=== PATIENT | female | born 1985 | race Caucasian/White ===

== ENCOUNTER 2021-01-24 20:51 | Observation (INO) | payer OTHER ==
[~2021-01-24] VITALS: Ht 154.9 cm; Wt 59.0 kg
[~2021-01-24 20:51] MED LIST: APAP500 PO; IBUPROFEN 600600 M1 PO; LANOLIN56 GM; LOPERAMIDE 2 MG2 M1 PO; NORCO 5-325 TA1 EACH PO; PENICILLIN VK500 M1 PO; TUCKS1 EAC1 TOP; ZOFRAN ODT8 MG PO
[2021-01-24 20:56] VITALS: BP 165/115
[2021-01-24 21:29] LABS: HEMATOCRIT 41.1 % (37.0-47.0); HEMOGLOBIN 13.9 gm/dL (12.0-15.0); MCH 29.8 pg (26.0-34.0); MCHC 33.8 g/dL (28.0-37.0); MCV 88.1 fL (80.0-100.0); MPV 7.8 fl. (7.2-11.1); NUCLEATED RBCS 0 /100WBC; PLATELET COUNT* 225 thou/uL (150-400); RBC 4.66 mil/uL (4.20-5.00); RDW-CV 12.9 % (10.5-14.5); WBC 19.5 thou/uL (4.0-11.0)
[2021-01-24 21:33] LABS: CALCIUM 9.2 mg/dL (8.5-10.1); CREATININE 0.9 mg/dL (0.6-1.3); POTASSIUM 3.5 mmol/L (3.5-5.1)
[2021-01-24 21:38] LABS: ALBUMIN 3.9 g/dL (3.4-5.0); TOTAL BILIRUBIN 1.1 mg/dL (<0.1-1.0)
[2021-01-24 21:58] LABS: ABSOLUTE LYMPHOCYTES 0.4 thou/uL (0.8-5.3); ABSOLUTE MONOCYTES 0.4 thou/uL (0.0-1.2); ABSOLUTE NEUTROPHILS 18.7 thou/uL (1.6-8.1)
[2021-01-24 21:59] LABS: PLATELET ESTIMATE ADEQUATE
[2021-01-25 00:17] LABS: URINE BILIRUBIN NEGATIVE (Negative); URINE BLOOD TRACE (Negative); URINE CLARITY CLEAR; URINE COLOR DARK YELLOW; URINE GLUCOSE-RANDOM NEGATIVE (Negative); URINE KETONES TRACE (Negative); URINE LEUKOCYTES-REFLEX NEGATIVE (Negative); URINE NITRITE-REFLEX NEGATIVE (Negative); URINE PROTEIN TRACE (Negative); URINE SPECIFIC GRAVITY 1.015 (1.005-1.030); URINE UROBILINOGEN 0.2 E.U./dl (0.2-1.0)
[2021-01-25 00:49] LABS: AMP/METHAMP POSITIVE (Negative); BARBITURATES Negative (Negative); BENZODIAZEPINES Negative (Negative); COCAINE Negative (Negative); METHADONE Negative (Negative); OPIATES POSITIVE (Negative); PCP Negative (Negative); THC POSITIVE (Negative)
[2021-01-25 09:14] VITALS: BP 132/87
[2021-01-25 09:29] VITALS: BP 124/77
[2021-01-25 16:00] VITALS: BP 145/86
[2021-01-25 20:18] VITALS: BP 131/80
[2021-01-26 07:10] VITALS: BP 131/82
[2021-01-26 08:51] LABS: ABSOLUTE BASOPHILS 0.1 thou/uL (0.0-0.2); ABSOLUTE EOSINOPHILS 0.2 thou/uL (0.0-0.7); ABSOLUTE LYMPHOCYTES 0.7 thou/uL (0.8-5.3); ABSOLUTE MONOCYTES 0.4 thou/uL (0.0-1.2); ABSOLUTE NEUTROPHILS 15.1 thou/uL (1.6-8.1); BASOPHILS 0.4 %; EOSINOPHILS 0.9 %; HEMOGLOBIN 11.6 gm/dL (12.0-15.0); LYMPHOCYTES 4.5 %; MCH 29.2 pg (26.0-34.0); MCV 88.6 fL (80.0-100.0); MONOCYTES 2.3 %; NUCLEATED RBCS 0 /100WBC; PLATELET COUNT* 206 thou/uL (150-400); POLYS 91.9 %; RBC 3.95 mil/uL (4.20-5.00); RDW-CV 13.1 % (10.5-14.5); WBC 16.4 thou/uL (4.0-11.0)
[2021-01-26 09:01] LABS: ALBUMIN 2.5 g/dL (3.4-5.0); CALCIUM 8.4 mg/dL (8.5-10.1); CREATININE 0.8 mg/dL (0.6-1.3); POTASSIUM 3.6 mmol/L (3.5-5.1); TOTAL BILIRUBIN 0.4 mg/dL (<0.1-1.0); TOTAL PROTEIN 6.3 g/dL (6.4-8.2)
[2021-01-26] MEDS ORDERED: NICOTINE PATCH1 EAC3 TRANSDERM (11:50)
[2021-01-26] MEDS ORDERED: CIPRO500 M1 PO (11:50)
[2021-01-26] MEDS ORDERED: MIRALAX17 GM PO (11:50)
[2021-01-26] MEDS ORDERED: PAIN RELIEVER500 MG PO (11:50)
[2021-01-26] MEDS ORDERED: FLAGYL500 M1 PO (11:50)
[2021-01-26 11:54] VITALS: BP 131/82
[2021-01-26 11:57] VITALS: BP 131/82
== END 2021-01-26 12:44 | disposition home or self-care (01) ==
LOC: M.ERS 20:51 → M.TBA-ER 01-25 04:20 → M.ORTHSURG 01-25 09:05
PROVIDERS: Emergency Medicine; ADMIT Internal Medicine; ATTEND Internal Medicine
DX: K52.9 Noninfective gastroenteritis and colitis, unspecified (principal); K29.70 Gastritis, unspecified, without bleeding; Z20.822 Contact with and (suspected) exposure to COVID-19; D72.829 Elevated white blood cell count, unspecified; E87.1 Hypo-osmolality and hyponatremia; F41.9 Anxiety disorder, unspecified; F32.9 Major depressive disorder, single episode, unspecified; E80.7 Disorder of bilirubin metabolism, unspecified; F17.210 Nicotine dependence, cigarettes, uncomplicated; F15.10 Other stimulant abuse, uncomplicated; Z79.899 Other long term (current) drug therapy